=== PATIENT | female | born 1970 | race Asian ===

== ENCOUNTER 2021-11-24 10:45 | Outpatient (REF) | payer OTHER, SELFPAY ==
--- NOTE | ~2021-11-24 | MM_ITS ---
EXAMINATION: MM DIAGNOSTIC DIGITAL BREAST TOMOSYNTHESIS, RIGHT CLINICAL INFORMATION: Recall for calcifications lower right breast on outside mammography. No known family history breast cancer. The lifetime risk of breast cancer based on the Tyrer-Cuzick Model is 10%. COMPARISON: Outside mammography 04/03/2021 (BI-RADS 0), 03/18/2019, 01/17/2018 ([facility]). TECHNIQUE: Digital breast tomosynthesis is performed in both the craniocaudal and mediolateral oblique views along with computer-aided detection (CAD). Synthesized 2D images are generated from the tomosynthesis. Additional magnification views are obtained in the CC x2 and ML projections. FINDINGS: The breasts are extremely dense, which lowers the sensitivity of mammography (ACR BI-RADS breast composition Category d). There is fibrocystic parenchymal pattern with smooth oval densities anterior and central right breast similar to outside exams. There is no architectural abnormality. The axilla and skin contours are unremarkable. Focal tightly grouped calcifications mid 3:30 position are similar to outside prior outside mammography without magnification. Calcifications are somewhat peripherally arranged and may involve a tiny cyst or fibroadenoma. Management plan is for follow-up magnification views right breast at time of annual bilateral mammography, due in 6 months. Results are discussed with the patient at time of visit. MM/MM tomosynthesis diagnostic RT IMPRESSION: Right: -Fibrocystic parenchymal pattern. -Probable benign calcifications mid 3:30 right breast similar to outside mammography without magnification 04/03/2021. ASSESSMENT: BI-RADS 3: Probably Benign RECOMMENDATION: Diagnostic right mammography in 6 months. This patient's information was entered into a reminder system with a target due date for their next mammogram.
== END 2021-11-24 10:46 | disposition home or self-care (01) ==
LOC: HO.MAMMO 10:45
PROVIDERS: Visit Provider Internal Medicine
DX: R92.8 Other abnormal and inconclusive findings on diagnostic imaging of breast (principal)
CPT/HCPCS: 77061; 77065

== ENCOUNTER 2022-02-08 10:38 | Outpatient (REF) | payer OTHER, SELFPAY ==
[2022-02-08 11:50] LABS: Estimated Average Glucose 117 mg/dL; Hemoglobin A1c % 5.7 %
[2022-02-08 11:51] LABS: Hematocrit 41.1 % (37.0-47.0); Hemoglobin 12.9 g/dl (12.0-16.0); Mean Corpuscular HGB Conc 31.4 g/dl (31.0-35.0); Mean Corpuscular Hemoglobin 26.2 pg (27.0-33.0); Mean Corpuscular Volume 83.4 fL (80.0-98.0); Mean Platelet Volume 11.9 fL (9.4-12.3); Platelet Count 190 X10*3/uL (160-400); Red Blood Count 4.93 X10*6/uL (4.20-5.50); Red Cell Distribution Width 12.9 % (11.0-16.0); White Blood Count 5.1 X10*3/uL (4.8-10.8)
[2022-02-08 12:34] LABS: Alanine Aminotransferase 15 U/L (0-31); Albumin Level 4.4 g/dL (3.5-5.0); Alkaline Phosphatase 38 U/L (39-117); Anion Gap 12 (12-20); Aspartate Amino Transferase 14 U/L (5-31); Bilirubin Total 0.6 mg/dL (0.0-1.0); Blood Urea Nitrogen 9 mg/dL (9-16); Calcium 9.4 mg/dL (8.4-10.2); Carbon Dioxide 27 mmol/L (22-29); Chloride 105 mmol/L (96-108); Cholesterol 269 mg/dL; Estimated Glomerular Filt Rate > 60; Glucose Fasting 115 mg/dL (60-99); HDL Cholesterol 94 mg/dL; LDL Cholesterol Calculated 159 mg/dl; Sodium 139 mmol/L (135-145); Total Protein 7.2 g/dL (6.5-8.0); Triglycerides 81 mg/dL
[2022-02-08 12:35] LABS: Microalbumin Urine < 5.0 mg/L
== END 2022-02-08 10:39 | disposition home or self-care (01) ==
LOC: HO.HMGCLDS 10:38
PROVIDERS: PCP Internal Medicine; Visit Provider Internal Medicine
DX: O24.419 Gestational diabetes mellitus in pregnancy, unspecified control (principal)
CPT/HCPCS: 36415; 80053; 80061; 82043; 83036; 84443; 85027

== ENCOUNTER 2022-05-30 12:32 | Outpatient (REF) | payer OTHER, SELFPAY ==
--- NOTE | ~2022-05-30 | MM_ITS ---
EXAMINATION: MM DIAGNOSTIC DIGITAL BREAST TOMOSYNTHESIS, BILATERAL US BREAST, BILATERAL CLINICAL INFORMATION: Six-month follow up right breast calcifications. Yearly left breast study. The lifetime risk of breast cancer based on the Tyrer-Cuzick Model is 9.9%. COMPARISON: Mammography: 11/24/2021 and studies dating back to 01/17/2018. TECHNIQUE: Digital breast tomosynthesis is performed in both the craniocaudal and mediolateral oblique views along with computer-aided detection (CAD). Synthesized 2-D images are generated from the tomosynthesis. Additional spot magnification views of the right breast in craniocaudal and 90 degree mediolateral views performed. Bilateral targeted breast ultrasound. FINDINGS: The breasts are extremely dense, which lowers the sensitivity of mammography (ACR BI-RADS breast composition Category d). The calcifications about the superior medial aspect of the right breast appear similar when compared to tomosynthesis views of 04/03/2021. Recommend 6 month follow-up spot magnification views of the right breast. On tomosynthesis views, there are noted to be bilateral circumscribed densities, the largest of which is within the right breast measuring approximately 3.9 x 2.9 cm in size. Targeted right breast ultrasound demonstrated a dominant minimally complex cyst with some debris at the 12 o'clock position, 2 cm from the nipple, measuring approximately 3.3 x 3.4 x 1.4 cm in size. There is a smooth back-wall with increased through sound transmission. Lesion is wider than it is tall. No internal vascularity is present. Numerous other cysts are present. No suspicious solid mass is seen. ULTRASOUND: Targeted left breast ultrasound demonstrates numerous cysts, the largest of which measures approximately 3.6 x 2.8 x 1.1 cm in size and containing some debris. There is a smooth back-wall with increased through sound transmission and no internal vascularity. The cyst is wider than it is tall. No suspicious solid masses identified. Results are discussed with the patient at time of visit. MM/MM tomosynthesis diagnostic BI IMPRESSION: Probable stable right breast calcifications. ASSESSMENT: BI-RADS 3: Probably Benign. RECOMMENDATION: Diagnostic right breast mammography in 6 months. This patient's information was entered into a reminder system with a target due date for their next mammogram.
== END 2022-05-30 12:33 | disposition home or self-care (01) ==
LOC: HO.MAMMO 12:32
PROVIDERS: PCP Internal Medicine; Visit Provider Internal Medicine
DX: R92.1 Mammographic calcification found on diagnostic imaging of breast (principal)
CPT/HCPCS: 76642; 77062; 77066

== ENCOUNTER 2022-08-09 08:39 | Outpatient (REF) | payer OTHER, SELFPAY ==
[2022-08-09 12:41] LABS: Cholesterol 219 mg/dL; HDL Cholesterol 94 mg/dL; LDL Cholesterol Calculated 110 mg/dl; Triglycerides 78 mg/dL
== END 2022-08-09 08:40 | disposition home or self-care (01) ==
LOC: HO.CHCLDS 08:39
PROVIDERS: Visit Provider Internal Medicine
DX: E78.5 Hyperlipidemia, unspecified (principal); R73.9 Hyperglycemia, unspecified
CPT/HCPCS: 36415; 80061

== ENCOUNTER → 2022-11-01 09:05 | Outpatient (BNVA) | payer OTHER, SELFPAY | PROVIDERS: PCP Internal Medicine; Visit Provider Nurse Practitioner Family | DX: Z01.818 Encounter for other preprocedural examination (principal) | CPT/HCPCS: 99202 ==

== ENCOUNTER 2022-11-29 10:34 | Outpatient (REF) | payer OTHER, SELFPAY ==
--- NOTE | ~2022-11-29 | MM_ITS ---
EXAMINATION: MM DIAGNOSTIC DIGITAL BREAST TOMOSYNTHESIS, BILATERAL US DIAGNOSTIC ULTRASOUND BREAST, BILATERAL CLINICAL INFORMATION: Palpable areas noted by patient left 3:00 and right 8:00. History fibrocystic changes. Also follow-up probable benign calcifications right breast mid 3:00. The lifetime risk of breast cancer based on the Tyrer-Cuzick Model is 10%. COMPARISON: Mammography: 05/30/2022, 11/24/2021; outside mammography 04/03/2021, 03/18/2019 ([facility]); bilateral breast ultrasound 05/30/2022. TECHNIQUE: Digital breast tomosynthesis is performed in both the craniocaudal and mediolateral oblique views along with computer-aided detection (CAD). Synthesized 2D images are generated from the tomosynthesis. Additional magnification right CC and magnification right LM views are obtained. Ultrasound bilateral breasts is targeted to the areas of clinical concern outer quadrants left breast and outer quadrants right breast, respectively. Patient is able to point to the areas of concern at time of imaging. Grayscale imaging and color Doppler are performed without and with harmonics. FINDINGS: Mammography: The breasts are extremely dense, which lowers the sensitivity of mammography (ACR BI-RADS breast composition Category d). There is a fibrocystic parenchymal pattern with smooth bilateral oval asymmetries similar to prior studies. No focal interval architectural abnormality or developing density or abnormal calcifications. The axilla are unremarkable. The skin contours are smooth. No skin thickening or retraction. The grouped calcifications mid 3:00 right breast for follow-up are stable from prior diagnostic studies. They will be reassessed again at next bilateral annual mammography to conclude long-term surveillance. Ultrasound: Right breast ultrasound targeted to the area of palpable concern demonstrates a simple cyst 8:00 position 6 cm from nipple measuring 1.1 cm. There is increased through-transmission of sound and well-defined huynh with no septation or solid component or color flow. The previously described complicated cyst with coarse internal echoes scattered 12:00 position 2 cm from nipple is slightly increased in size. Current measurements are 4.0 x 1.4 x 3.7 cm compared with prior measurements 3.4 x 1.4 x 3.7 cm. Margins are circumscribed. There is increased through-transmission of sound. No associated color flow. Left breast ultrasound targeted to the area of palpable concern demonstrates a circumscribed lesion with coarse internal echoes and no associated peripheral or internal color flow, slightly decreased in size. Current measurements are 2.2 x 1.1 x 1.7 cm compared with prior measurements 3.0 x 1.1 x 2.3 cm. Again, there is a dominant cyst 12:00 position 2 cm from nipple measuring approximately 3.3 x 1.5 cm. Prior measurements are similar, 3.6 x 1.5 cm. Results are discussed with the patient at time of visit. MM/MM tomosynthesis diagnostic BI IMPRESSION: -No significant changes mammography and bilateral breast ultrasound from prior study. ASSESSMENT: BI-RADS 2: Benign RECOMMENDATION: Routine annual mammography screening. This patient's information was entered into a reminder system with a target due date for their next mammogram.
== END 2022-11-29 10:35 | disposition home or self-care (01) ==
LOC: HO.MAMMO 10:34
PROVIDERS: PCP Internal Medicine; Visit Provider Internal Medicine
DX: N63.25 Unspecified lump in the left breast, overlapping quadrants (principal); N63.13 Unspecified lump in the right breast, lower outer quadrant
CPT/HCPCS: 76642; 77062; 77066

== ENCOUNTER 2023-08-10 09:05 | Outpatient (REF) | payer OTHER, SELFPAY ==
[2023-08-10 11:26] LABS: MANUAL DIFF FLAG NO
[2023-08-10 11:39] LABS: Estimated Average Glucose 114 mg/dL; Hemoglobin A1c % 5.6 % (<6.0)
[2023-08-10 11:46] LABS: Basophils Percent Auto 0.4 % (0-2); Eosinophils Absolute Auto 0.1 X10*3/uL (0.0-0.4); Eosinophils Percent Auto 1.2 % (0-4); Hematocrit 40.9 % (37.0-47.0); Imm Gran Abs Auto 0.01 X10*3/uL (0.00-0.03); Imm Gran Pct Auto 0.2 % (0.0-0.4); Lymphocytes Absolute Auto 1.3 X10*3/uL (1.2-4.9); Lymphocytes Percent Auto 26.1 % (20-40); Mean Corpuscular HGB Conc 31.8 g/dl (31.0-35.0); Mean Corpuscular Hemoglobin 26.7 pg (27.0-33.0); Mean Platelet Volume 12.2 fL (9.4-12.3); Monocytes Absolute Auto 0.5 X10*3/uL (0.1-1.2); Neutrophils Percent Auto 62.1 % (45-73); Platelet Count 194 X10*3/uL (160-400); Red Blood Count 4.87 X10*6/uL (4.20-5.50); Red Cell Distribution Width 12.8 % (11.0-16.0); White Blood Count 4.9 X10*3/uL (4.8-10.8)
[2023-08-10 12:32] LABS: Alanine Aminotransferase 15 U/L (0-31); Albumin Level 4.2 g/dL (3.5-5.0); Alkaline Phosphatase 39 U/L (39-117); Anion Gap 11 (12-20); Aspartate Amino Transferase 18 U/L (5-31); Bilirubin Total 0.6 mg/dL (0.0-1.0); Blood Urea Nitrogen 9 mg/dL (9-16); Calcium 9.1 mg/dL (8.4-10.2); Carbon Dioxide 27 mmol/L (22-29); Chloride 104 mmol/L (96-108); Cholesterol 222 mg/dL (<200); Estimated Glomerular Filt Rate > 60; Glucose Fasting 91 mg/dL (60-99); HDL Cholesterol 99 mg/dL (>40); LDL Cholesterol Calculated 113 mg/dL (<100); Potassium 3.8 mmol/L (3.3-5.1); Sodium 138 mmol/L (135-145); Total Protein 6.8 g/dL (6.5-8.0); Triglycerides 50 mg/dL (<150)
== END 2023-08-10 09:06 | disposition home or self-care (01) ==
LOC: HO.HMGCLDS 09:05
PROVIDERS: PCP Internal Medicine; Visit Provider Internal Medicine
DX: Z00.00 Encounter for general adult medical examination without abnormal findings (principal); E78.5 Hyperlipidemia, unspecified; R73.9 Hyperglycemia, unspecified
CPT/HCPCS: 36415; 80053; 80061; 83036; 84443; 85025

== ENCOUNTER 2023-08-15 11:32 | Day surgery (SDC) | payer OTHER, SELFPAY ==
[2023-08-11 10:39] VITALS: BMI 20.6
--- NOTE | 2023-08-14 09:15 | HO.ANESPROP2 ---
HPI - Anesthesia Eval Consult details Narrative: 53yo F for Colonoscopy PMFSH Active Problems Active Problems: All Active Problems (Updated 10/17/22 @ 14:43 by Freya Oliveira MD) Left breast lump (Acute) Hyperlipidemia (Acute) Hyperglycemia (Acute) Gynecologic exam normal (Acute) Abnormal mammogram of right breast (Acute) Dysplastic nevus (Acute) Gestational diabetes mellitus (Acute) Annual physical exam (Acute) Past Medical History Medical History Hyperlipidemia Hyperglycemia Gynecologic exam normal Abnormal mammogram of right breast Dysplastic nevus Gestational diabetes mellitus Annual physical exam Family History Family History Daughter Mental health disorder Surgical History Surgical History (Updated 06/28/23 @ 14:01 by Edel Pena RN) Surgical history unknown Social History Social History Household Members Other:: , 2 children (12, 14) Housing: House Patient Tobacco Use Status: Never used Tobacco e-Cigarette/Vaping Use: Never Used service: No Current occupational status: unemployed Cognitive needs: No Hearing needs: No Vision needs: Yes Meds Allergies Allergy/AdvReac Type Severity Reaction Status Date / Time No Known Allergies Allergy Verified 11/01/22 09:34 Home Medications Medication Instructions Recorded Confirmed Last Taken Type melatonin PO PRN 08/16/22 08/16/22 Unknown History Exam Exam Date and Time: August 14, 2023 0915 Height,Weight and Vital Signs: Height 5 ft Weight 47.797 kg Pertinent Lab Results Pertinent Lab Results: Laboratory Tests 08/10/23 09:22 WBC 4.9 Hgb 13.0 Hct 40.9 Plt Count 194 Sodium 138 Potassium 3.8 D Chloride 104 Carbon Dioxide 27 BUN 9 Creatinine 0.61 Assessment and Plan Assessment Anesthesia Assessment: Chart Reviewed
--- NOTE | 2023-08-15 11:59 | MHC.SHP ---
Pre-Procedural Eval Section A Date of Service: 08/15/23 Section B Chief Complaint: screening Relevant Family History (Specify if Yes): No Relevant Social History: None Present Medications: see Short Stay Collaborative assessment Medical History: No relevant PMH History of Previous Operations: No relevant previous surgery Allergies: Allergies Allergy/AdvReac Type Severity Reaction Status Date / Time No Known Allergies Allergy Verified 11/01/22 09:34 Review of Systems Review of Systems Comment: Ten point ROS negative Exam Exam Comment: Gen appear: No acute distress HEENT: no icterus Chest: No overt resp distress Abd: soft, nontender, nondistended Psych: Stable affect, answering questions appropriately Neuro: A/Ox3 noted to move all extremities spontaneously Ext: no peripheral edema Plan Diagnosis/Plan: Unchanged I have reviewed the history and physical and performed a pertinent physical examination on my patient. No changes have occurred unless specified. Time Spent With Patient Time: Total time managing care of this patient today ____ minutes.
[2023-08-15 12:26] VITALS: BP 129/77; PULSE 68; RESP 16; TEMP 36.7; O2SAT 100
--- NOTE | 2023-08-15 12:27 | P.CONAN_ITS ---
[facility] Active Problems Active Problems: All Active Problems (Updated 10/17/22 @ 14:43 by Freya Oliveira MD) Left breast lump (Acute) Hyperlipidemia (Acute) Hyperglycemia (Acute) Gynecologic exam normal (Acute) Abnormal mammogram of right breast (Acute) Dysplastic nevus (Acute) Gestational diabetes mellitus (Acute) Annual physical exam (Acute) Past Medical History Medical History Hyperlipidemia Hyperglycemia Gynecologic exam normal Abnormal mammogram of right breast Dysplastic nevus Gestational diabetes mellitus Annual physical exam Functional capacity: independent ambulation Family History Family History Daughter Mental health disorder Surgical History Surgical History Surgical history unknown History of Problems with Anesthesia: No Social History Social History Household Members Other:: , 2 children (12, 14) Housing: House Patient Tobacco Use Status: Never used Tobacco e-Cigarette/Vaping Use: Never Used Use of substances other than those prescribed or required for medical reasons: No Are you DNR?: No Advance Directives: No Advance Directives Information Provided: Yes service: No Current occupational status: unemployed Cognitive needs: No Hearing needs: No Vision needs: Yes Meds Allergies Allergy/AdvReac Type Severity Reaction Status Date / Time No Known Allergies Allergy Verified 11/01/22 09:34 Active Medications: Current Medications Lactated Ringer's (Lr) 1,000 mls @ 100 mls/hr IVCONT .Q10H [facility] Home Medications Medication Instructions Recorded Confirmed Last Taken Type melatonin PO PRN 08/16/22 08/16/22 Unknown History Exam Exam Date and Time: August 15, 2023 1227 Height,Weight and Vital Signs: Height 5 ft Weight 47.797 kg Airway Mallampati Class: II TM Dist: >3cm Neck ROM: Full Heart: RRR Lungs: CTA Assessment and Plan Assessment Anesthesia Assessment: Anesthesia Plan Discussed Final Anesthetic Review History of Problems with Anesthesia: No ASA Class: II Final Preanesthetic Review: Meds/Allgs Chart Reviewed, Consent Obtained/Reviewed and Anes Risks/Benef Reviewed Patient Risk: Low Procedure Risk: Low Anesthetic Plan Anesthetic Plan: MAC: Disposition: Standard PACU
[2023-08-15] MEDS: Lactated Ringers 1,000 ML 100 ML IVCONT (12:39)
--- NOTE | 2023-08-15 13:17 | P.OP_ITS ---
Operative Note Operative Note Date of Service: 08/15/23 Narrative: Procedure: Colonoscopy Indication: Screening Endoscopist: Elizabeth Burr MD Anesthesia Provider: Velia Marie CRNA Anesthesia type: MAC Instrument: Olympus [id number]-[id number] Consent: Indication, risks vs benefits, and alternatives were discussed with the patient who gave written informed consent to proceed. EKG, pulse, pulse oximetry and blood pressure were monitored throughout the procedure. Please see anesthesia flowsheet. Procedure: The patient was brought to the procedure room and placed in the left lateral decubitus position. IV medications were administered by the anesthesia provider in attendance. A digital rectal exam was performed which was abnormal due to ext hemorrhoids. A distal attachment cap was affixed to the tip of the scope and the colonoscope was then inserted through the anus and advanced through the colon to the cecum at 75 cm,and terminal ileum. Mucosa was carefully examined under high definition white light as the instrument was slowly withdrawn in a retrograde panoramic fashion. Retroflexion was performed in rectum. The procedure was not difficult. There were no immediate obvious complications. The quality of the prep was BBPS: 3+2+3 = adequate Withdrawal time 7 minutes. Limitations: No limitations. Findings: Mucosa: Erythema with white exudates were noted at the IC valve compatible with prep artifact as the terminal ileum mucosa and remaining colon mucosa was otherwise normal. Cold forceps biopsies were taken from IC valve. Protruding lesions: * Medium internal hemorrhoids without stigmata of recent bleeding. Impression: 1. Abnormal IC valve mucosa (biopsy) 2. External and internal hemorrhoids Recommendations: - Follow path results. - No further action needed for abnormal IC valve if has acute inflammation only on histology. - Repeat colonoscopy for asymptomatic colorectal cancer screening in 10 years.
[2023-08-15 13:52] VITALS: BP 95/62; PULSE 77; RESP 16; TEMP 36.7; O2SAT 100
[2023-08-15 14:07] VITALS: BP 102/64; PULSE 72; RESP 16; TEMP 36.7; O2SAT 100
--- NOTE | 2023-08-15 14:15 | HO.POSTANES ---
Post Anesthesia Evaluation Post Anesthesia Evaluation Date of Service: 08/15/23 Vital Signs: Vital Signs Temp Pulse Resp BP Pulse Ox O2 Del Method 08/15/23 14:08 98.1 F 72 16 102/64 100 Room Air 08/15/23 13:52 98.1 F 77 16 95/62 100 Room Air 08/15/23 12:26 98.1 F 68 16 129/77 100 Room Air Anesthesia: Monitored Mental Status: Awake Pain Control: Satisfactory Nausea/Vomiting: None Hydration: Adequate Anesthesia-Related Issues: No Anes. Related Issues
[2023-08-15 14:22] VITALS: BP 112/68; PULSE 72; RESP 16; TEMP 36.7; O2SAT 100
== END 2023-08-15 14:56 | disposition home or self-care (01) ==
PROVIDERS: PCP Internal Medicine; Visit Provider Internal Medicine
PROC: 0DJD8ZZ Inspection of Lower Intestinal Tract, Via Natural or Artificial Opening Endoscopic (ICD-10-PCS; CPT 45378; principal; 2023-08-15 13:10)
DX: Z12.11 Encounter for screening for malignant neoplasm of colon (principal); K63.89 Other specified diseases of intestine; K64.4 Residual hemorrhoidal skin tags; K64.8 Other hemorrhoids; E78.5 Hyperlipidemia, unspecified; R73.9 Hyperglycemia, unspecified; D23.9 Other benign neoplasm of skin, unspecified
CPT/HCPCS: 45380; 88305; J2250

== ENCOUNTER → 2023-08-15 11:32 | Outpatient (BNV) | payer OTHER, SELFPAY | PROVIDERS: PCP Internal Medicine; Visit Provider Internal Medicine | DX: Z12.11 Encounter for screening for malignant neoplasm of colon (principal); K63.89 Other specified diseases of intestine; K64.8 Other hemorrhoids | CPT/HCPCS: 45380 ==

== ENCOUNTER 2023-08-17 12:40 | Outpatient (AMB) | payer OTHER, SELFPAY ==
--- NOTE | 2023-08-17 13:18 | A.OFFPC_ITS ---
Vital Signs 08/17/23 13:24 Height 5 ft Weight 90 lb BMI 17.6 BP 100/60 Blood Pressure Location Lt brachial Position Sitting Pulse 73 Pulse Source Pulse Oximeter Pulse Oximetry (%) 99 Oxygen Delivery Method Room Air Intake Visit Reasons: Annual PE-NEEDS PHQ9+THRIVE Intake Note: Pt is here today for PE. Allergies No Known Allergies Allergy (Verified 08/17/23 13:18) Medication List - Last Reconciled 08/17/23 by Freya Oliveira MD cholecalciferol (vitamin D3) 25 mcg PO DAILY melatonin PO PRN Tobacco use date assessed: 08/17/23 Dental Screening Dental Screen Date: 08/17/23 Did you have a dental visit in the last 12 months?: Yes Did you have a dental problem in the last 6 months where you did not have access to dental care?: No Was dental information given to patient?: Patient has dentist HPI Annual PE-NEEDS PHQ9+THRIVE HPI Details Pt presents for PE. 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 [facility] Medical History Hyperlipidemia Hyperglycemia Gynecologic exam normal Abnormal mammogram of right breast Dysplastic nevus Gestational diabetes mellitus Annual physical exam Surgical History Surgical history unknown Family History Daughter Mental health disorder Social History Household Members Other:: , 2 children (12, 14) Housing: House Patient Tobacco Use Status: Never used Tobacco e-Cigarette/Vaping Use: Never Used service: No Current occupational status: unemployed Cognitive needs: No Hearing needs: No Vision needs: Yes Questionnaire PHQ-9 Over the last 2 weeks, how often have you been bothered by any of the following problems? 1. Little interest or pleasure in doing things: not at all 2. Feeling down, depressed, or hopeless: not at all 3. Trouble falling or staying asleep, or sleeping too much: nearly every day 4. Feeling tired or having little energy: not at all 5. Poor appetite or overeating: not at all 6. Feeling bad about yourself - or that you are a failure or have let yourself or your family down: not at all 7. Trouble concentrating on things, such as reading the newspaper or watching television: not at all 8. Moving or speaking so slowly that other people could have noticed. Or the opposite - being so fidgety or restless that you have been moving around a lot more than usual: not at all 9. Thoughts that you would be better off or of hurting yourself in some way: not at all Total score: 3 Depression Screening Interpretation: Negative Depression Screening Done: Yes Source: Developed by Drs. Stan Martin, Esperanza Curran, Danilo Lopez and colleagues, with an educational laura from [employer]. Thrive Questionnaire Date Thrive assessed: 08/17/23 I am a: Patient What is your living situation today?: I have a steady place to live Within the past 12 months, did the food you bought not last and you didn't have the money to get more?: Never true Within the past 12 months, did you worry whether your food would run out before you got money to buy more?: Never true Do you have trouble paying for medicines?: No Do you have trouble getting transportation to medical appointments?: No Do you have trouble paying your heating and electricity bill?: No Do you have trouble taking care of your child, family member or friend?: No Do you have trouble with day-to-day activities such as bathing, preparing meals, shopping, managing finances, etc.?: No Are you currently unemployed and looking for a job?: No Are you interested in more education?: No Please select the resources that you would like help with: None Currently or been in a relationship where the following occur: no concerns reported AUDIT C Alcohol Use Questionnaire (AUDIT-C) 1. How often do you have a drink containing alcohol?: Never 3. How often do you have six or more drinks on one occasion?: Never Total Score: 0 SIERRA-7 AMB Questionnaire SIERRA-7 Date SIERRA - 7 assessed: 08/17/23 Feeling nervous, anxious, or on edge: 0 = Not at all Not being able to stop or control worryin = Not at all Worrying too much about different things: 0 = Not at all Trouble relaxin = Not at all Being so restless that it is hard to sit still: 0 = Not at all Becoming easily annoyed or irritable: 0 = Not at all Feeling afraid as if something awful might happen: 0 = Not at all Total SIERRA-7 score (0-4 normal; 5-9 mild; 10-14 moderate; 15-21 severe): 0 Source: Developed by Drs. Stan Martin, Esperanza Curran, Danilo Lopez and colleagues, with an educational laura from [employer]. Review of Systems Const All systems reviewed & are unremarkable except as noted in HPI and below Reports no additional complaints Eyes Reports no additional complaints ENT Reports no additional complaints Card Reports no additional complaints Resp Reports no additional complaints GI Reports no additional complaints Reports no additional complaints Physical exam (Primary Care) Vital Signs: Last Vital Signs Pulse 73 08/17/23 13:24 BP 100/60 08/17/23 13:24 Pulse Ox 99 08/17/23 13:24 Oxygen Delivery Method Room Air 08/17/23 13:24 BMI result Body Mass Index 17.6 Tobacco/Smoking Status: Tobacco use Status Tobacco use date assessed 08/17/23 08/17/23 13:19 Patient Tobacco Use Status Never used Tobacco 08/17/23 13:19 e-Cigarette/Vaping Use Never Used 08/17/23 13:19 PHQ-9: PHQ-9 Score PHQ-9: Total score 3 08/17/23 13:28 Depression Screening Interpretation: Negative Thrive Assessment: Date of Thrive Assessment Date Thrive assessed 08/17/23 08/17/23 13:28 Currently or been in a relationship where the following occur: no concerns reported Const General: no acute distress HENMT Head: Yes normal to inspection Ears: hearing grossly normal bilaterally Face and sinus: Yes normal facial exam Eyes General: appearance normal, both eyes and all related structures Neck Neck: Yes no lymphadenopathy and Yes supple Resp Effort & Inspection: normal respiratory effort Auscultation: clear to auscultation bilaterally Cardio Rhythm: regular rhythm Heart sounds: S1 normal heart sound present and S2 normal heart sound present GI Inspection: Yes normal to inspection Palpation (GI): Soft to palpation Percussion: Yes normal to percussion Auscultation: normal bowel sounds External Female Exam: normal external appearance Speculum Exam - Vagina: normal appearance of the vagina Speculum Exam - Cervix: normal appearance of the cervix Bimanual exam- vagina & uterus: normal bimanual exam Assessment and Plan Assessment & Plan (1) Carpal tunnel syndrome: Code(s): G56.00 - Carpal tunnel syndrome, unspecified upper limb Plan: Refer for EMG, patient was advised to wear a wrist splint (2) Left breast lump: Code(s): N63.20 - Unspecified lump in the left breast, unspecified quadrant (3) Bilateral breast cysts: Code(s): N60.01 - Solitary cyst of right breast; N60.02 - Solitary cyst of left breast Plan: Follow-up for mammogram and bilateral breast ultrasound in November (4) Annual physical exam: Code(s): Z00.00 - Encounter for general adult medical examination without abnormal findings Plan: Well-balanced diet regular physical activity discussed with the patient . Pap smear was done today. Patient had a colonoscopy a week ago. Follow-up in 1 year or as needed Orders: Orders NE nerve conduction velocity Today G56.00 - Carpal tunnel syndrome, unspecified upper limb US breast LT complete 12/01/23 N60.01 - Solitary cyst of right breast, N60.02 - Solitary cyst of left breast, N63.20 - Unspecified lump in the left breast, unspecified quadrant US breast RT complete 12/01/23 N60.01 - Solitary cyst of right breast, N60.02 - Solitary cyst of left breast, N63.20 - Unspecified lump in the left breast, unspecified quadrant Pap Smear Today Z00.00 - Encounter for general adult medical examination without abnormal findings Coding Level of Care Code Est Pt Prev Care 40-64y(90988) Diagnoses Carpal tunnel syndrome G56.00 Left breast lump N63.20 Bilateral breast cysts N60.01; N60.02 Annual physical exam Z00.00
[2023-08-17 13:24] VITALS: BP 100/60; PULSE 73; O2SAT 99; BMI 17.6
== END 2023-08-17 14:15 | disposition home or self-care (01) ==
PROVIDERS: Visit Provider Internal Medicine
DX: Z00.00 Encounter for general adult medical examination without abnormal findings (principal); G56.00 Carpal tunnel syndrome, unspecified upper limb; N60.01 Solitary cyst of right breast; N60.02 Solitary cyst of left breast
CPT/HCPCS: 99396

== ENCOUNTER 2023-08-17 14:10 | Outpatient (REF) | payer OTHER, SELFPAY ==
[2023-08-22 04:53] LABS: HPV mRNA E6/E7 Not Detected (Not Detected)
== END 2023-08-17 14:11 | disposition home or self-care (01) ==
LOC: HO.LNP 14:10
PROVIDERS: Visit Provider Internal Medicine
DX: Z01.419 Encounter for gynecological examination (general) (routine) without abnormal findings (principal)
CPT/HCPCS: 87624; 88142

== ENCOUNTER 2023-08-28 09:07 | Outpatient (AMB) | payer OTHER, SELFPAY ==
--- NOTE | 2023-08-28 09:11 | A.OFFVIS_ITS ---
Intake Vital Signs 08/28/23 09:13 Height 5 ft Weight 97 lb 0.054 oz BMI 18.9 BP 106/69 Blood Pressure Location Lt brachial Position Sitting Pulse 92 Intake Visit Reasons: s/p colon Intake Note: Patient presents to in office visit today in follow up s/p colonoscopy. CC: Patient underwent colonoscopy with Dr. Burr on 08/15/23. Patient reports a little bit of RLQ abdominal pain. Denies other GI sympotms today. 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 Denies history of anesthesia in the past.? Denies any history of sleep apnea.? No history infectious diseases in the past or present.? Not on any anticoagulation therapy.? No family or personal history of colon cancer or polyps.? Patient denies melena, hematochezia, unintentional weight loss or ribbon like stools.? Discussed at length the pre-procedure,? prep, diet & medications as well as what to expect prior, during and after the procedure.?? Stressed the importance of good bowel prep. ?Recommended the use of Vaseline or Calmoseptine OTC & baby wipes with bowel movements to promote comfort.? ?Patient verbalizes understanding and agrees to plan of care.? She was given the opportunity to ask questions and all questions answered.? We will see her after the procedure.? Plan Medications New bisacodyl (Dulcolax (bisacodyl)) take 2 tabs at noon the day before your colonoscopy 10 mg (2 x 5 mg) PO ONCE 1 day 2 tabs 0RF Z12.11 polyethylene glycol 3350 (Miralax) As directed by gastroenterology department at [facility] 238 grams PO ONCE 238 grams 0RF Z12.11 COLONOSCOPY: Findings: Mucosa: Erythema with white exudates were noted at the IC valve compatible with prep artifact as the terminal ileum mucosa and remaining colon mucosa was otherwise normal. Cold forceps biopsies were taken from IC valve. Protruding lesions: * Medium internal hemorrhoids without stigmata of recent bleeding. Impression: 1. Abnormal IC valve mucosa (biopsy) 2. External and internal hemorrhoids Recommendations: - Follow path results. - No further action needed for abnormal IC valve if has acute inflammation only on histology. - Repeat colonoscopy for asymptomatic co lorectal cancer screening in 10 years. PATHOLOGY RESULTS Diagnosis Ileocecal valve, biopsy: Ileo-colonic mucosa with lymphoid aggregates and no specific change; no ileocolitis, granulomas or dysplasia TODAY'S VISIT Patient is here today for follow-up and to discuss colonoscopy results. Patient had no polyps, sample from ileocecal valve taken and no acute inflammatory changes seen. Patient denies any ill effects from the prep, anesthesia procedure itself. Patient reports that she had right lower quadrant discomfort for few days after the procedure, however currently patient reports that she has been feeling well. Patient denies any melena, hematochezia, unintentional weight loss or ribbon like stools. Patient however reports of losing few lb about 7 months ago or so after her 's . Otherwise patient reports that she has been doing well, patient denies any GI concerning symptoms. Reports to have good appetite. Patient states that she noticed that when she cooks vegetables she feels like she digest them better and is able to have a better bowel movement then when she eats them raw. Patient denies any dyspepsia, dysphagia or odynophagia. [facility] Medical History Hyperlipidemia Hyperglycemia Gynecologic exam normal Abnormal mammogram of right breast Dysplastic nevus Gestational diabetes mellitus Annual physical exam Surgical History Surgical history unknown Family History Daughter Mental health disorder Social History Household Members Other:: , 2 children (12, 14) Housing: House Patient Tobacco Use Status: Never used Tobacco e-Cigarette/Vaping Use: Never Used service: No Current occupational status: unemployed Cognitive needs: No Hearing needs: No Vision needs: Yes Review of Systems Const Denies weight gain and Denies weight loss ENT Reports no additional complaints, Denies dysphagia and Denies odynophagia Card Reports no additional complaints Resp Reports no additional complaints GI Denies abdominal pain, Denies belching, Denies melena, Denies bloating, Denies change in bowel habits, Denies dysphagia, Denies excessive flatus, Denies dyspepsia, Denies heartburn, Denies diarrhea, Denies loose stools, Denies nausea, Denies odynophagia and Denies vomiting Reports no additional complaints Musc Reports no additional complaints Neuro Reports no additional complaints Psych Reports no additional complaints Endo Reports no additional complaints Physical Exam Vital Signs: Last Vital Signs Pulse 92 08/28/23 09:13 BP 106/69 08/28/23 09:13 BMI result Body Mass Index 18.9 Const General: healthy appearing, no acute distress and well developed Nutritional Appearance: well nourished Orientation/consciousness: patient oriented x3 HEENT Head: Yes normal to inspection, Yes normocephalic and Yes atraumatic Face and sinus: Yes normal facial exam Mouth: Normal oral and palatal mucosa present Throat: Yes posterior oropharynx normal, Yes tonsils normal and Yes uvula midline Eyes General: appearance normal, both eyes and all related structures Neck Neck: Yes normal visual inspection, Yes full ROM and Yes trachea midline Thyroid: Thyroid normal Resp Effort & Inspection: normal respiratory effort, able to speak in complete sentences, no tracheal deviation and symmetric chest movement Auscultation: clear to auscultation bilaterally Cardio Rate: regular rate Heart sounds: S1 normal heart sound present and S2 normal heart sound present GI Inspection: Yes normal to inspection and No distended Palpation (GI): Soft to palpation, not firm, nontender and No hepatosplenomegaly present Auscultation: normal bowel sounds General: Yes no CVA tenderness Back/Spine/Pelvis Back: no CVA tenderness Skin General skin exam: elasticity normal, turgor normal and dry skin Neuro General: patient oriented x3 Psych Appearance: grossly normal Mental Status: mental status grossly normal Assessment & Plan Assessment & Plan (1) Status post colonoscopy: Code(s): Z98.890 - Other specified postprocedural states Plan: Patient denies any ill effects from the prep, anesthesia or procedure itself. Patient will return for colonoscopy in 10 years, sooner if clinically necessary. Patient denies any GI concerning symptoms and will follow-up with us on as needed basis. Patient is agreeable to this plan and verbalizes understanding of instructions. She was given the opportunity to ask questions and all questions answered. Thank you for allowing me to participate in her care Coding Level of Care Code Est Pt Level 3 (31570) Diagnoses Status post colonoscopy Z98.890 Time Spent (min) 25 Comment 15 minutes spent with patient and additional 10 minutes spent reviewing her records
[2023-08-28 09:13] VITALS: BP 106/69; PULSE 92; BMI 18.9
== END 2023-08-28 09:51 | disposition home or self-care (01) ==
PROVIDERS: PCP Internal Medicine; Visit Provider Nurse Practitioner Family
DX: Z98.890 Other specified postprocedural states (principal)
CPT/HCPCS: 99213

== ENCOUNTER → 2023-08-28 09:07 | Outpatient (BNVA) | payer OTHER, SELFPAY | PROVIDERS: PCP Internal Medicine; Visit Provider Nurse Practitioner Family | DX: Z98.890 Other specified postprocedural states (principal) | CPT/HCPCS: 99212 ==

== ENCOUNTER 2023-09-14 09:20 | Outpatient (REF) | payer OTHER, SELFPAY ==
--- NOTE | 2023-09-14 09:23 | EMG_ITS ---
Right median and ulnar motor and sensory studies were performed. Right radial sensory studies were performed and paraspinal muscles were tested with a needle. IMPRESSION: 1. [id number] right median neuropathy across carpal tunnel. 2. Mild right ulnar neuropathy across elbow. MD CALLUM Miranda/NORMA / [id number]
== END 2023-09-14 09:21 | disposition home or self-care (01) ==
LOC: HO.NEURO 09:20
PROVIDERS: PCP Internal Medicine; Visit Provider Internal Medicine
DX: R20.0 Anesthesia of skin (principal); M79.641 Pain in right hand
CPT/HCPCS: 95886; 95909

== ENCOUNTER 2023-10-17 11:53 | Outpatient (AMB) | payer OTHER, SELFPAY ==
[2023-10-17 12:47] VITALS: BP 108/66; PULSE 83; O2SAT 100; BMI 18.9
--- NOTE | 2023-10-17 12:47 | MHC.PC.OV ---
Vital Signs 10/17/23 12:47 Height 5 ft Weight 97 lb BMI 18.9 BP 108/66 Blood Pressure Location Lt brachial Position Sitting Pulse 83 Pulse Source Pulse Oximeter Pulse Oximetry (%) 100 Oxygen Delivery Method Room Air Intake Visit Reasons: lump on the breast Intake Note: Pt is here today for a sick visit. Pt c/o lump in her L breast. Allergies No Known Allergies Allergy (Verified 10/17/23 12:52) Tobacco use date assessed: 08/17/23 Dental Screening Dental Screen Date: 10/17/23 Did you have a dental visit in the last 12 months?: Yes Did you have a dental problem in the last 6 months where you did not have access to dental care?: No Was dental information given to patient?: Patient has dentist HPI lump on the breast HPI Details Patient presents complaining of increasing in size of left breast lump which was previously diagnosed as breast cyst on mammogram and breast ultrasound last year. She reports slight discomfort. [facility] Medical History Hyperlipidemia Hyperglycemia Gynecologic exam normal Abnormal mammogram of right breast Dysplastic nevus Gestational diabetes mellitus Annual physical exam Surgical History Surgical history unknown Family History Daughter Mental health disorder Social History Household Members Other:: , 2 children (12, 14) Housing: House Patient Tobacco Use Status: Never used Tobacco e-Cigarette/Vaping Use: Never Used service: No Current occupational status: unemployed Cognitive needs: No Hearing needs: No Vision needs: Yes Questionnaire PHQ-9 Over the last 2 weeks, how often have you been bothered by any of the following problems? 1. Little interest or pleasure in doing things: not at all 2. Feeling down, depressed, or hopeless: not at all 3. Trouble falling or staying asleep, or sleeping too much: nearly every day 4. Feeling tired or having little energy: not at all 5. Poor appetite or overeating: not at all 6. Feeling bad about yourself - or that you are a failure or have let yourself or your family down: not at all 7. Trouble concentrating on things, such as reading the newspaper or watching television: not at all 8. Moving or speaking so slowly that other people could have noticed. Or the opposite - being so fidgety or restless that you have been moving around a lot more than usual: not at all 9. Thoughts that you would be better off or of hurting yourself in some way: not at all Total score: 3 Depression Screening Interpretation: Negative Depression Screening Done: Yes Source: Developed by Drs. Stan Martin, Esperanza Curran, Danilo Lopez and colleagues, with an educational laura from [email or web address]. Thrive Questionnaire Date Thrive assessed: 10/17/23 I am a: Patient What is your living situation today?: I have a steady place to live Within the past 12 months, did the food you bought not last and you didn't have the money to get more?: Never true Within the past 12 months, did you worry whether your food would run out before you got money to buy more?: Never true Do you have trouble paying for medicines?: No Do you have trouble getting transportation to medical appointments?: No Do you have trouble paying your heating and electricity bill?: No Do you have trouble taking care of your child, family member or friend?: No Do you have trouble with day-to-day activities such as bathing, preparing meals, shopping, managing finances, etc.?: No Are you currently unemployed and looking for a job?: No Are you interested in more education?: No Please select the resources that you would like help with: None AUDIT C Alcohol Use Questionnaire (AUDIT-C) 1. How often do you have a drink containing alcohol?: Never 3. How often do you have six or more drinks on one occasion?: Never Total Score: 0 SIERRA-7 AMB Questionnaire SIERRA-7 Date SIERRA - 7 assessed: 10/17/23 Feeling nervous, anxious, or on edge: 0 = Not at all Not being able to stop or control worryin = Not at all Worrying too much about different things: 0 = Not at all Trouble relaxin = Not at all Being so restless that it is hard to sit still: 0 = Not at all Becoming easily annoyed or irritable: 1 = Several days Feeling afraid as if something awful might happen: 1 = Several days Total SIERRA-7 score (0-4 normal; 5-9 mild; 10-14 moderate; 15-21 severe): 2 Source: Developed by Drs. Stan Martin, Esperanza Curran, Danilo Lopez and colleagues, with an educational laura from [email or web address]. Review of Systems Const All systems reviewed & are unremarkable except as noted in HPI and below Reports no additional complaints Eyes Reports no additional complaints ENT Reports no additional complaints Card Reports no additional complaints Resp Reports no additional complaints GI Reports no additional complaints Reports no additional complaints Physical exam (Primary Care) Vital Signs: Last Vital Signs Pulse 83 10/17/23 12:47 BP 108/66 10/17/23 12:47 Pulse Ox 100 10/17/23 12:47 Oxygen Delivery Method Room Air 10/17/23 12:47 BMI result Body Mass Index 18.9 Tobacco/Smoking Status: Tobacco use Status Tobacco use date assessed 08/17/23 10/17/23 12:49 Patient Tobacco Use Status Never used Tobacco 10/17/23 12:49 e-Cigarette/Vaping Use Never Used 10/17/23 12:49 PHQ-9: PHQ-9 Score PHQ-9: Total score 3 10/17/23 12:55 Depression Screening Interpretation: Negative Thrive Assessment: Date of Thrive Assessment Date Thrive assessed 10/17/23 10/17/23 12:55 HENMT Head: Yes normal to inspection Throat: Yes posterior oropharynx normal Chest Breast/axilla inspection: normal inspection of the axillae Breast/axilla palpation: abnormal palpation of the breast (3 L breast masses, behind nipple,03:00 4 cm, at 6:00, ) Resp Effort & Inspection: normal respiratory effort Auscultation: clear to auscultation bilaterally Cardio Rhythm: regular rhythm Heart sounds: S1 normal heart sound present and S2 normal heart sound present Assessment and Plan Assessment & Plan (1) Left breast lump: Comment: 3 lock Code(s): N63.20 - Unspecified lump in the left breast, unspecified quadrant Plan: For increasing in size of left breast mass at 03:00 o'clock patient will be referred for diagnostic left breast and screening right breast mammogram and left breast ultrasound to evaluate (2) Bilateral breast cysts: Code(s): N60.01 - Solitary cyst of right breast; N60.02 - Solitary cyst of left breast Orders: Orders MM diagnostic mammo unilat RT Today N60.01 - Solitary cyst of right breast, N60.02 - Solitary cyst of left breast MM diagnostic mammo unilat LT Today N60.01 - Solitary cyst of right breast, N60.02 - Solitary cyst of left breast, N63.20 - Unspecified lump in the left breast, unspecified quadrant US breast LT complete Today N60.01 - Solitary cyst of right breast, N60.02 - Solitary cyst of left breast, N63.20 - Unspecified lump in the left breast, unspecified quadrant Coding Level of Care Code Est Pt Level 3 (62506) Diagnoses Left breast lump N63.20 Bilateral breast cysts N60.01; N60.02
== END 2023-10-17 14:10 | disposition home or self-care (01) ==
PROVIDERS: PCP Internal Medicine; Visit Provider Internal Medicine
DX: N63.24 Unspecified lump in the left breast, lower inner quadrant (principal); N60.01 Solitary cyst of right breast; N60.02 Solitary cyst of left breast
CPT/HCPCS: 99213

== ENCOUNTER 2023-11-02 14:41 | Outpatient (REF) | payer OTHER, SELFPAY ==
--- NOTE | ~2023-11-02 | US_ITS ---
EXAMINATION: MM DIAGNOSTIC DIGITAL BREAST TOMOSYNTHESIS, BILATERAL US BREAST LIMITED, LEFT MAMMOGRAPHY: CLINICAL INFORMATION: 53-year-old female complaining of palpable abnormality and pain in the 3-4 o'clock axis of the left breast . 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 COMPARISON: Mammography: 11/29/2022, 05/30/2022, 11/24/2021, 04/03/2021, and dating back to 2018. TECHNIQUE: Digital breast tomosynthesis is performed in both the craniocaudal and mediolateral oblique views along with computer-aided detection (CAD). Synthesized 2D images are generated from the tomosynthesis. FINDINGS: The breasts are extremely dense, which lowers the sensitivity of mammography (ACR BI-RADS breast composition Category d). There are stable subtle calcifications in the RIGHT breast inner quadrant. These are benign. There are poorly visualized masses in the RIGHT breast on tomography, stable from prior exams. These are known to represent cysts. In the LEFT breast, there are subtle oval circumscribed masses seen spanning 3:00 to 8:00, appearing more prominent than on previous mammography. There are a few scattered tiny microcalcifications which appear benign. LEFT breast will be interrogated by ultrasound. No architectural distortion or suspicious grouped calcifications in either breast. No skin or axillary abnormalities. ULTRASOUND: CLINICAL INFORMATION: Palpable abnormality as detailed above, 3-4 o'clock axis left breast spanning to the 6:00 axis. Patient also reports associated episodic pain. COMPARISON: Ultrasound left breast 11/29/2022, and 05/30/2022. TECHNIQUE: Targeted left sonographic evaluation was performed using a high frequency linear transducer. Essentially the entire left breast was scanned due to its small size. Selected archived documentation. FINDINGS: (Limited due to the extreme density of both breasts). LEFT BREAST: Left breast is extremely small and extremely dense. In the 3-4 o'clock axis, there is a solid hypoechoic oval mass, with good through transmission, circumscribed borders, scant amount of internal color Doppler blood flow, and numerous linear specular interfaces throughout. It has significantly increased in size since 11 months prior, currently measuring 3.6 x 1.9 x 2.7 cm (previously measuring 2.3 x 1.1 x 3.0 cm). This has features of a fibroadenoma although given the rapid increase in size, a Phyllodes tumor is also a consideration. This appears to correlate with what the patient is palpating. Ultrasound-guided biopsy is recommended. At the 4:00 to 6:00 axis there is a large multi lobulated cyst with floating specular echoes measuring 3.3 x 2.2 x 3.1 cm, also mildly enlarged from the prior ultrasound (where it measured 2.8 x 1.1 x 3.6 cm), but is benign. Aspiration is offered should this abnormality be causing patient discomfort or pain. At the 8:00 axis, there is a small oval simple cyst measuring 2.1 cm in length. This has also moderately increased in size. US/US breast LT limited mamm only IMPRESSION: 1. Enlarging oval solid mass (presumably the palpable focus of concern) in the left breast spanning the 3-4 o'clock axis as detailed, for which ultrasound-guided biopsy is recommended to exclude a phyllodes tumor or other neoplasm. 2. Enlarging multilocular cyst with specular floating echoes left breast 4-6 o'clock axis, benign. Aspiration is offered should this abnormality be causing patient discomfort or pain. 3. Slightly enlarging 2.1 cm simple cyst in the left breast at the 8:00 axis. Aspiration is offered should this abnormality be causing patient discomfort or pain. 4. Stable benign mammographic findings right breast without suspicious feature. Above findings and recommendations were discussed with the patient in detail, although unclear if the patient clearly understood the complex findings due to a language barrier (patient is from [facility]). She did understand need for biopsy. OVERALL ASSESSMENT: Mammography: BI-RADS 4 - Suspicious finding Ultrasound: BI-RADS 4 - Suspicious finding RECOMMENDATION: Biopsy recommended
== END 2023-11-02 14:42 | disposition home or self-care (01) ==
LOC: HO.MAMMO 14:41
PROVIDERS: PCP Internal Medicine; Visit Provider Internal Medicine
DX: N60.02 Solitary cyst of left breast (principal); N60.01 Solitary cyst of right breast; N64.4 Mastodynia
CPT/HCPCS: 76642; 77062; 77066

== ENCOUNTER → 2023-11-02 15:30 | Outpatient (BNV) | payer OTHER, SELFPAY | PROVIDERS: PCP Internal Medicine; Visit Provider Radiology Diagnostic Radiology | DX: N63.23 Unspecified lump in the left breast, lower outer quadrant (principal) | CPT/HCPCS: 76642; 77062; 77066 ==

== ENCOUNTER 2023-11-07 08:16 | Outpatient (AMB) | payer OTHER, SELFPAY ==
--- NOTE | 2023-11-07 08:23 | MHC.OFFVIS ---
Intake Vital Signs 11/07/23 08:48 Height 5 ft Weight 93 lb BMI 18.2 BP 113/74 Blood Pressure Location Lt brachial Position Sitting Pulse 92 Intake Visit Reasons: US biopsy Left breast for 3 o'clock mass Intake Note: Patient is seen in office for ultrasound biopsy consult, following left breast 3 o'clock mass. Pt c/o: feeling a lump on the left breast since her last menstrual cycle on 06/2023, has increase in size, painful, uncomfortable, had bilateral cyst in the past (benign), denies redness, discharge, or other breast concerns/ no breast surgeries, no complications with breast feeding Installation Service Representative Required: No Accompanied by: Self / Same As Patient Allergies No Known Allergies Allergy (Verified 11/07/23 08:35) HPI HPI Comments History of Present Illness Details 53-year-old female patient presenting with a palpable left breast mass. She has a known history of a left breast cyst noted on a previous ultrasound approximately 11 months ago. She noted increased size of a lump in the left breast at approximately the 3 o'clock position extending down to the 06:00 o'clock position. 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 She is scheduled for an ultrasound-guided core biopsy later today at the [facility]. She denies a family history of breast cancer although her family is mostly in [facility] and family history difficult to obtain. She does have a paternal uncle with a history of leukemia. She denies a previous history of breast problems or breast surgery other than the cyst of the left breast. She is breastfed her children. [facility] Medical History (Updated 11/07/23 @ 08:19 by Bill Patel MD) Hyperlipidemia Hyperglycemia Gynecologic exam normal Abnormal mammogram of right breast Dysplastic nevus Gestational diabetes mellitus Annual physical exam Surgical History (Updated 11/07/23 @ 08:47 by JO Cotto) History of delivery Family History (Updated 11/07/23 @ 08:47 by JO Cotto) Daughter Mental health disorder Paternal Uncle Leukemia Maternal Aunt Cancer of unknown origin Maternal Aunt Cancer of unknown origin Social History Household Members Other:: , 2 children (12, 14) Housing: House Patient Tobacco Use Status: Never used Tobacco e-Cigarette/Vaping Use: Never Used service: No Current occupational status: unemployed Cognitive needs: No Hearing needs: No Vision needs: Yes Female Reproductive History Menstrual Age of Menarche: 16 Date of last menstrual period: 06/09/23 Total pregnancies: 2 Number of Living Children: 2 Review of Systems Const All systems reviewed & are unremarkable except as noted in HPI and below Denies chills, Denies fever(s), Denies headache(s), Denies poor appetite and Denies weakness ENT Denies headache(s) Card Denies chest pain, Denies irregular heart rhythm, Denies palpitations and Denies dyspnea Resp Denies cough, Denies excessive phlegm production and Denies dyspnea GI Denies abdominal pain, Denies bloating, Denies change in bowel habits, Denies constipation, Denies heartburn, Denies diarrhea, Denies nausea and Denies vomiting Denies urinary frequency and Denies nipple discharge Musc Denies back pain, Denies muscle weakness and Denies numbness Skin/Breast Reports breast swelling, Reports breast pain, Reports breast mass, Denies changing lesions, Denies nipple discharge and Denies unusual bruising Neuro Denies headache(s), Denies numbness, Denies paresthesias and Denies weakness Psych Denies anxiety and Denies depression Endo Denies palpitations Rashaun/Lymph Denies lymphadenopathy Physical Exam Const General: cooperative and no acute distress Nutritional Appearance: well nourished Orientation/consciousness: patient oriented x3 Limitations: no limitations HEENT Head: Yes normocephalic and Yes atraumatic Ears: hearing grossly normal bilaterally Chest Other: Left breast large palpable solid mass located in the 3-6 o'clock position extending 3-4 cm beyond the nipple-areolar complex as noted below. Smaller lump noted in the 2 o'clock position. All lumps or mobile within the breast tissue. No overlying skin changes are appreciated. Nipple discharge could not be expressed. No other palpable mass or enlarged lymph nodes appreciated. Right breast single palpable density noted in the 2 o'clock position mobile within the breast tissue felt consistent with a fibroadenoma. No other palpable mass, skin change, nipple discharge or enlarged lymph nodes appreciated. Chest/axillae images: 1. Small mobile palpable mass in the right breast upper outer quadrant, 02:00 o'clock 2. Bi-lobed palpable mass left breast. Surface is smooth and mobile within the breast tissue. No overlying skin changes no fixation the chest wall. 3. Smaller palpable mass in the 2 o'clock position Resp Effort & Inspection: normal respiratory effort, no audible wheezes, no cough and no respiratory distress Cardio Jugular venous distension: no JVD GI Inspection: Yes normal to inspection Skin Other: Warm, dry, no rash Neuro General: patient oriented x3 Extrem General: Yes no clubbing, cyanosis or edema Results Reviewed Results Reviewed: Ultrasound left breast: Assessment & Plan Assessment & Plan (1) Abnormal mammogram of left breast: Code(s): R92.8 - Other abnormal and inconclusive findings on diagnostic imaging of breast Plan 53-year-old female patient with enlarging left breast mass confirmed by mammogram and ultrasound felt to possibly be a phyllodes tumor. She is scheduled for an ultrasound-guided core biopsy later today. On examination there is indeed a palpable mass which is quite large compared to the size of her breast located in the lower outer quadrant which does appear consistent with a phyllodes tumor or very large fibroadenoma. I recommended she return in approximately 1 week to review the pathology results and discuss treatment options. She expressed understanding and agrees with the plan. Orders: Orders US breast ndl core biopsy LT Today R92.8 - Other abnormal and inconclusive findings on diagnostic imaging of breast Coding Level of Care Code New Pt Level 4 (03300) Diagnoses Abnormal mammogram of left breast R92.8
[2023-11-07 08:48] VITALS: BP 113/74; PULSE 92; BMI 18.2
== END 2023-11-07 08:50 | disposition home or self-care (01) ==
PROVIDERS: PCP Internal Medicine; Visit Provider Surgery
DX: R92.8 Other abnormal and inconclusive findings on diagnostic imaging of breast (principal)
CPT/HCPCS: 99204

== ENCOUNTER 2023-11-07 09:07 | Outpatient (REF) | payer OTHER, SELFPAY ==
--- NOTE | ~2023-11-07 | MM_ITS ---
PROCEDURE: US GUIDED BREAST BIOPSY, LEFT CLINICAL INFORMATION: -Hypoechoic oval circumscribed mass spanning the left breast 3-4 o'clock axis, increasing in size over past 11 months, currently measuring 3.6 x 1.9 x 2.7 cm and recommended for biopsy. -Lateral left 3:00 axis much smaller hypoechoic oval circumscribed mass suspected to be benign fibroadenoma, also targeted for biopsy. -Large multi lobulated simple cyst spanning the 4:00 to 6:00 axis left breast behind the nipple (benign appearance, drained). -Small simple cyst in the 8:00 axis left breast. (Not drained) COMPARISON: Left breast ultrasound 11/02/2023. Mammography 11/02/2023, and 11/29/2022. PROCEDURAL DETAILS: The details of the procedure, as well as the risks, benefits, and alternatives to the procedure were explained to the patient in detail and all of her questions were answered, after which written informed consent was obtained. Site and side were confirmed. Prior to the procedure, sonography revealed the large hypoechoic circumscribed mass in the central 3:00 axis left breast, measuring 3.6 x 1.9 x 2.7 cm. A time-out was performed, the lesion intended for biopsy was targeted, and the skin of the overlying left breast was then marked, prepped and draped in the usual sterile fashion. Using sonographic guidance, sterile technique, and 1% lidocaine without epinephrine for local anesthesia, a single core biopsy was obtained through the targeted area with a 14G spring loaded [employer] core biopsy device. There was real-time confirmation of appropriate needle passage. Sampling was documented. Immediately after the first passage, dark brown fluid began to drain from the mass , revealing it was actually a complex cyst. The remainder of the fluid was drained and sent for cytology. One core biopsy of the cyst wall was sent for pathology. The lesion completely collapsed and disappeared after drainage, and no clip was placed. After this, at the lateral 3:00 axis, a 1.7 x 1.0 x 2.2 cm suspected mass was targeted, presumed also to be complex cystic. The lesion intended for drainage was targeted, and the skin of the overlying left breast was then marked, prepped and draped in the usual sterile fashion. Using sonographic guidance, sterile technique, and 1% lidocaine without epinephrine for local anesthesia, an 18-gauge spinal needle was advanced into the lesion, and brown fluid was aspirated and sent for cytology. The lesion did not completely disappear, and a residual hypoechoic small foci measuring 2.0 x 1.0 cm was subsequently biopsied, with 3 core biopsies obtained utilizing a 14G spring loaded [employer] core biopsy device. There was real-time confirmation of appropriate needle passage. Sampling was documented. At the completion of tissue sampling, a single barrel shaped metallic clip was deposited at the biopsy site. There was no evidence of immediate complication. Patient tolerated the procedure well. SPECIMEN: 1 small core sample was obtained from the larger 3:00 drained lesion. Aspirated fluid was also sent for cytology. 3 small core biopsies were obtained from the far lateral 3:00 translation hypoechoic persistent 2.0 x 1.0 cm component. Aspirated fluid was also sent for cytology. DIGITAL POST-PROCEDURE MAMMOGRAPHY: Breast density: The tissue is extremely dense, which lowers the sensitivity of mammography. BI-RADS version 5, category D. There are no new mammographic findings demonstrated. The postprocedure 2-view direct digital mammogram reveals satisfactory and accurate positioning of the 3:00 far posterior biopsy clip. No hematoma present. The patient tolerated the procedure well and, after assuring adequate hemostasis, was discharged in good condition after reviewing postbiopsy breast care instructions. Final pathology and cytology results are pending. MM/MM tomosynthesis diagnostic LT IMPRESSION: 1. No immediate complication from ultrasound-guided percutaneous biopsy and drainage of 3:00 complex cyst measuring up to 3.6 cm. After drainage is the lesion completely disappeared, precluding clip placement. Brown fluid was aspirated. The initial solitary core biopsy of the cyst wall was sent for pathology. Fluid was sent for cytology. 2. No immediate complication from ultrasound-guided percutaneous biopsy and drainage of far lateral 3:00 complex cyst measuring up to 2.2 cm. After drainage a small hypoechoic remnant of the lesion measuring 2.0 x 1.0 cm was present, and 3 core biopsies were obtained and sent for pathology. Brown fluid was aspirated and sent for cytology. 3. Ultrasound was used to localize and guide solitary marker clip placement at the lateral 3:00 posterior location from the second complex cyst in which cores were obtained. 4. The 2-view direct digital postprocedure mammogram reveals satisfactory positioning of the posterior 3:00 solitary biopsy clip. 5. Final pathology and cytology results are pending. A separate report with final recommendations will be issued once these results are made available. 6. Dr. Patel was notified of the procedure results via [facility] text at 10:45 AM, 11/07/2023
[2023-11-07] MEDS: Lidocaine HCl 1 % 20 ML VIAL 9 ML SUBCUT (11:35)
[2023-11-07] MEDS: Sodium Bicarbonate 8.4% 50 MEQ/50 ML VIAL SUBCUT (11:36)
== END 2023-11-07 09:08 | disposition home or self-care (01) ==
LOC: HO.MAMMO 09:07
PROVIDERS: PCP Internal Medicine; Visit Provider Surgery
DX: R92.8 Other abnormal and inconclusive findings on diagnostic imaging of breast (principal); N63.23 Unspecified lump in the left breast, lower outer quadrant; N60.02 Solitary cyst of left breast
CPT/HCPCS: 19000; 19083; 77061; 77065; 88112; 88305; 99202; A4648; C1894

== ENCOUNTER → 2023-11-07 10:00 | Outpatient (BNV) | payer OTHER, SELFPAY | PROVIDERS: PCP Internal Medicine; Visit Provider Radiology Diagnostic Radiology | DX: N63.25 Unspecified lump in the left breast, overlapping quadrants (principal) | CPT/HCPCS: 19000; 19083; 77065 ==

== ENCOUNTER 2023-11-14 08:52 | Outpatient (AMB) | payer OTHER, SELFPAY ==
--- NOTE | 2023-11-14 09:13 | A.OFFVIS_ITS ---
Intake Vital Signs 11/14/23 09:24 Height 5 ft Weight 94 lb 8 oz BMI 18.5 BP 120/78 Blood Pressure Location Lt brachial Position Sitting Pulse 79 Intake Visit Reasons: S/p US biopsy Left breast for 3 o'clock mass Intake Note: Patient is seen in office for ultrasound biopsy results, left breast 3 o'clock mass. Pt c/o: admits to minimal bruising in the area, no other concerns, here for results Inventory Checker Required: No Accompanied by: Self / Same As Patient Allergies No Known Allergies Allergy (Verified 11/14/23 09:24) Medication List - Last Reconciled 11/14/23 by Bill Patel MD cholecalciferol (vitamin D3) 25 mcg PO DAILY melatonin PO PRN HPI HPI Comments History of Present Illness Details 53[facility] The lesion was completely aspirated and subsequent pathology revealed benign cyst. She tolerated the procedure well but does have some bruising below the needle site. She denies any pain. She does report developing her menstrual cycle 1 day after the needle aspiration, her 1st cycle in 5 months. She feels the probably is related to the previous breast cyst. A copy of the pathology report was provided to the patient. [facility] Medical History Hyperlipidemia Hyperglycemia Gynecologic exam normal Abnormal mammogram of right breast Dysplastic nevus Gestational diabetes mellitus Annual physical exam Surgical History History of delivery Family History Daughter Mental health disorder Paternal Uncle Leukemia Maternal Aunt Cancer of unknown origin Maternal Aunt Cancer of unknown origin Social History Household Members Other:: , 2 children (12, 14) Housing: House Patient Tobacco Use Status: Never used Tobacco e-Cigarette/Vaping Use: Never Used service: No Current occupational status: unemployed Cognitive needs: No Hearing needs: No Vision needs: Yes Female Reproductive History Menstrual Age of Menarche: 16 Review of Systems Const All systems reviewed & are unremarkable except as noted in HPI and below Denies chills, Denies fever(s), Denies headache(s), Denies poor appetite and Denies weakness ENT Denies headache(s) Card Denies chest pain, Denies irregular heart rhythm, Denies palpitations and Denies dyspnea Resp Denies cough, Denies excessive phlegm production and Denies dyspnea GI Denies abdominal pain, Denies bloating, Denies change in bowel habits, Denies constipation, Denies heartburn, Denies diarrhea, Denies nausea and Denies vomiting Denies urinary frequency and Denies nipple discharge Musc Denies back pain, Denies muscle weakness and Denies numbness Skin/Breast Denies breast swelling, Denies breast pain, Denies breast mass, Denies nipple discharge and Reports unusual bruising Neuro Denies headache(s), Denies numbness, Denies paresthesias and Denies weakness Psych Denies anxiety and Denies depression Endo Denies palpitations Rashaun/Lymph Denies lymphadenopathy Physical Exam Vital Signs: Last Vital Signs Pulse 79 11/14/23 09:24 BP 120/78 11/14/23 09:24 BMI result Body Mass Index 18.5 Const General: comfortable Nutritional Appearance: thin Orientation/consciousness: patient oriented x3 Chest Other: Biopsy site in the left upper outer quadrant is clean and intact with intact Steri-Strips. There is a small area of ecchymosis with no palpable hematoma or recurrent cyst palpable. Resp Effort & Inspection: normal respiratory effort Neuro General: patient oriented x3 Extrem General: No edema Assessment & Plan Assessment & Plan (1) Bilateral breast cysts: Code(s): N60.01 - Solitary cyst of right breast; N60.02 - Solitary cyst of left breast Plan 53-year-old female patient status post needle aspiration of a large cyst of the left breast. The cyst completely evacuated and no residual masses appreciated. Pathology revealed benign breast tissue and cyst fluid. I recommended annual screening mammograms with follow-up as needed. Coding Level of Care Code Est Pt Level 3 (90090) Diagnoses Bilateral breast cysts N60.01; N60.02
[2023-11-14 09:24] VITALS: BP 120/78; PULSE 79; BMI 18.5
== END 2023-11-14 09:33 | disposition home or self-care (01) ==
PROVIDERS: PCP Internal Medicine; Visit Provider Surgery
DX: N60.01 Solitary cyst of right breast (principal); N60.02 Solitary cyst of left breast
CPT/HCPCS: 99213

== ENCOUNTER → 2023-11-14 08:52 | Outpatient (BNVA) | payer OTHER, SELFPAY | PROVIDERS: PCP Internal Medicine; Visit Provider Surgery | DX: N60.01 Solitary cyst of right breast (principal); N60.02 Solitary cyst of left breast | CPT/HCPCS: 99212 ==

== ENCOUNTER 2023-11-21 08:36 | Outpatient (AMB) | payer OTHER, SELFPAY ==
--- NOTE | 2023-11-21 08:45 | A.OFFVIS_ITS ---
Intake Vital Signs 11/21/23 08:47 Height 5 ft Weight 94 lb BMI 18.4 Handedness Right Intake Visit Reasons: New Pt - Right hand px, EMG done 09/14/23 Intake Note: Elisabet is a 53 year old right hand dominant female who presents today as a new patient for a evaluation for her right hand numbness. EMG was done on 09/14/23. She states that her symptoms has gotten worse in the past 2 years. Her numbness is off and on during the day. She states her numbness improved slightly after the EMG. Allergies No Known Allergies Allergy (Verified 11/21/23 08:46) HPI New Pt - Right hand px, EMG done 09/14/23 HPI Details 53-year-old right hand dominant female bladimir guillen presents in the office today, as a new patient, for an evaluation of right hand pain. While in the office today the patient states her symptoms have increased in the past 2 years. She reports intermittent numbness and tingling during the day. She states the numbness slightly improved after the EMG. [facility] Medical History Hyperlipidemia Hyperglycemia Gynecologic exam normal Abnormal mammogram of right breast Dysplastic nevus Gestational diabetes mellitus Annual physical exam Surgical History History of delivery Family History Daughter Mental health disorder Paternal Uncle Leukemia Maternal Aunt Cancer of unknown origin Maternal Aunt Cancer of unknown origin Social History Household Members Other:: , 2 children (12, 14) Housing: House Patient Tobacco Use Status: Never used Tobacco e-Cigarette/Vaping Use: Never Used service: No Current occupational status: unemployed Cognitive needs: No Hearing needs: No Vision needs: Yes Female Reproductive History Menstrual Age of Menarche: 16 Review of Systems Const All systems reviewed & are unremarkable except as noted in HPI and below Physical Exam Vital Signs: BMI result Body Mass Index 18.4 Const General: cooperative and no acute distress Orientation/consciousness: patient oriented x3 Resp Effort & Inspection: normal respiratory effort and able to speak in complete sentences Cardio Peripheral pulses: Peripheral pulses 2+ throughout Skin General skin exam: no rashes or lesions noted Neuro General: patient oriented x3 Extrem Other: Right hand: Normal to inspection. No ecchymosis, erythema, or edema. Able to perform full finger flexion, extension, abduction, adduction, finger cross, okay sign, and thumbs up without deficit. Able to make a closed fist. Reports intermittent numbness and tingling in the right thumb, index, and middle digits. Sensation intact. Capillary refill is brisk. Radial pulse intact. Assessment & Plan Assessment & Plan (1) Right carpal tunnel syndrome: Code(s): G56.01 - Carpal tunnel syndrome, right upper limb Plan Ms. Olivo is a 53-year-old right hand dominant female who presents in the office today, as a new patient, for an evaluation of right hand pain. While in the office today the patient states her symptoms have increased in the past 2 years. She reports intermittent numbness and tingling during the day. She states the numbness slightly improved after the EMG. We discussed the role of surgical intervention while in the office today, however, the patient does not wish to pursue this at this time. She has a velcro wrist splint which she wears as her symptoms dictate. She may return back to normal activities as tolerated. I educated the patient that should her symptoms increase or become more constant she should contact the office to follow up. If her symptoms are more constant this is when surgical intervention may or may not be beneficial due to the possibility of permanent nerve damage. Follow up will be PRN, or sooner if needed. EMG of the right upper extremity, obtained on 09/14/2023, revealed: 1. [id number] right median neuropathy across carpal tunnel. 2. Mild right ulnar neuropathy across elbow. Patient Instructions: Scribed by Fiona Butcher diploma medical assistant, for Francie Guerrero PA-C on 11/21/2023 at 8:37 am, EST. Coding Level of Care Code New Pt Level 4 (65343) Diagnoses Right carpal tunnel syndrome G56.01
[2023-11-21 08:47] VITALS: BMI 18.4
== END 2023-11-21 09:03 | disposition home or self-care (01) ==
PROVIDERS: PCP Internal Medicine; Visit Provider Physician Assistant
DX: G56.01 Carpal tunnel syndrome, right upper limb (principal)
CPT/HCPCS: 99204

== ENCOUNTER → 2023-11-21 08:36 | Outpatient (BNVA) | payer OTHER, SELFPAY | PROVIDERS: PCP Internal Medicine; Visit Provider Physician Assistant | DX: G56.01 Carpal tunnel syndrome, right upper limb (principal) | CPT/HCPCS: 99202 ==